=== PATIENT | male | born 1995 | race Caucasian/White ===

== ENCOUNTER 2018-03-22 02:51 | Emergency (ER) | payer OTHER ==
[2018-03-22 02:58] VITALS: BP 103/75
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
[2018-03-22] MEDS ORDERED: TDAP ADULT 0.5 ML INJ (BOOSTRIX) IM ONE (03:02)
[2018-03-22] MEDS ORDERED: CEPHALEXIN 500 MG CAP PO ONE (03:02)
[2018-03-22] MEDS ORDERED: CEPHALEXIN 500MG PREPACK#4 BTL TAKEHOME ONE (03:02)
[2018-03-22] MEDS ORDERED: AMOXICILLIN/CLAVULANATE POT 875/125 MG TAB PO ONE (03:09)
== END 2018-03-22 03:42 | disposition home or self-care (01) ==
DX: S40.872A Other superficial bite of left upper arm, initial encounter (principal); Y04.1XXA Assault by human bite, initial encounter; Y92.59 Other trade areas as the place of occurrence of the external cause; Z23 Encounter for immunization